=== PATIENT | male | born 1950 ===

== ENCOUNTER 2022-09-04 00:56 | Outpatient (CLI) | payer OTHER, MEDICAID, SELFPAY ==
--- NOTE | 2022-09-04 | DI.MRI_ITS ---
Exam(s) MR LUMBAR SPINE WO EXAM: MR LUMBAR SPINE WO CLINICAL HISTORY: DANISH L5 RADICULOPATHY ON EMG, M54.17. TECHNIQUE: Multiplanar multisequence MRI of the Lumbar spine was performed. COMPARISON: No exams were available for comparison FINDINGS: Bones: The last intervertebral disc space is designated the L5/S1 level for the numbering purpose of this examination. The vertebral body heights are well maintained. Mild scoliosis. The marrow signa l characteristics are unremarkable. Cord: The conus tip ends at the T12 level. It is of normal size and signal intensity. T12-L1: No disc herniations or bulges are present. No central spinal canal or neural foraminal stenos is. L1-2: Asymmetric disc space narrowing and osteophyte formation eccentric toward the left. Moderate t o severe left neural foraminal narrowing. No central canal stenosis. L2-3: Eccentric narrowing of the disc space and endplate osteophyte formation eccentric toward the le ft. Facet degenerative changes and ligamentous hypertrophy. No significant central canal stenosis. Moderate right and severe left neural foraminal narrowing. L3-4: Mild loss of disc height. Concentric disc bulging. Prominent facet degenerative changes and l igamentous hypertrophy. severe central canal stenosis. Moderate bilateral neural foraminal narrowin g. L4-5: loss of disc height eccentric toward the left at endplate osteophyte formation. Severe right neural foraminal narrowing. Facet degenerative changes greater on the right. Mild moderate central canal stenosis. L5-S1: No disc herniations or bulges are present. Facet degenerative changes. No central canal steno sis or neural foraminal narrowing. The visualized SI joints and sacrum are well maintained. Soft tissues: The paraspinal soft tissues are unremarkable. IMPRESSION: Multilevel degenerative disc changes and facet degenerative changes cause multilevel neural foraminal narrowing. Severe central canal stenosis at L3-4. [id number] central canal stenosis at L4-5. DATA REPOSITORY:
== END 2022-09-04 01:16 ==
DX: M51.17 Intervertebral disc disorders with radiculopathy, lumbosacral region (principal); M48.07 Spinal stenosis, lumbosacral region
CPT/HCPCS: 72148

== ENCOUNTER → 2022-11-20 08:13 | Outpatient (BNVA) | payer OTHER, MEDICAID, SELFPAY | PROVIDERS: Referring Provider Psychiatry & Neurology Neurology; Visit Provider Nurse Practitioner Adult Health | DX: G62.9 Polyneuropathy, unspecified (principal); E53.8 Deficiency of other specified B group vitamins | CPT/HCPCS: 99204 ==

== ENCOUNTER 2022-12-29 16:04 | Outpatient (CLI) | payer OTHER, MEDICAID, SELFPAY ==
--- NOTE | 2022-12-29 16:43 | DI.RAD_ITS ---
Exam(s) XR KNEE LT 3V AP,LAT,ASHA EXAM: XR KNEE LT 3V AP,LAT,ASHA CLINICAL HISTORY: left knee pain. TECHNIQUE: 2D digital imaging was performed. Three views. COMPARISON: CR Knee R from 10/18/2020 CR,DX XR Knee 3 Views Right from 11/07/2021 CR XR Knee 4 Views w/ Patella Right from 04/23/2022 FINDINGS: There has been no change in the alignment of the total knee prosthesis based on the AP view. No susp icious surrounding bony lucencies. A small joint effusion is seen. IMPRESSION: Small joint effusion. Unremarkable left knee prosthesis. DATA REPOSITORY: RADIATION DOSE DELIVERED:
== END 2022-12-29 16:05 | disposition home or self-care (01) ==
LOC: DIORS 16:04
PROVIDERS: Visit Provider Student in an Organized Health Care Education/Training Program
DX: Z96.652 Presence of left artificial knee joint; M17.11 Unilateral primary osteoarthritis, right knee
CPT/HCPCS: 73562; 99214

== ENCOUNTER → 2023-02-18 12:59 | Outpatient (BNVA) | payer OTHER, MEDICAID, SELFPAY | PROVIDERS: Visit Provider Nurse Practitioner Adult Health | DX: G62.9 Polyneuropathy, unspecified (principal) | CPT/HCPCS: 99213 ==